=== PATIENT | female | born 1995 | race Caucasian/White ===

== ENCOUNTER 2017-05-10 15:40 | Emergency (ER) | payer OTHER ==
[~2017-05-10] VITALS: Ht 165.1 cm; Wt 90.9 kg
[2017-05-10] MEDS ORDERED: ALBU18HF IH (16:37)
[2017-05-10] MEDS ORDERED: HYDR-971 PO (16:37)
--- NOTE | 2017-05-10 16:37 | PHYS DOC ---
Past History Past Medical History: Anxiety, Asthma, Migraines, Other Past Surgical History: Other Alcohol Use: None Drug Use: None Adult General Chief Complaint Chief Complaint: COUGH HPI HPI Patient is a 21-year-old female presenting to the emergency department for evaluation of multiple symptoms including cough and nasal congestion runny nose sore throat generalized malaise fatigue having a migraine headache. Patient is bringing her 11-day-old in with her to be seen as well. Patient says that the symptoms have been going on for approximately 4-5 days. Cough is nonproductive and she has had no fevers chills nausea vomiting or diarrhea. Patient has a history of migraine headaches and took Imitrex when she had a primary care provider however she does not have any currently. She is in no obvious distress with normal vital signs. Review of Systems Review of Systems Constitutional: Denies fever or chills [] HENT: + nasal congestion, sore throat [] Respiratory: Denies cough or shortness of breath [] Cardiovascular: No additional information not addressed in HPI [] GI: Denies abdominal pain, nausea, vomiting, bloody stools or diarrhea [] : Denies dysuria or hematuria [] Musculoskeletal: Denies back pain or joint pain [] Integument: Denies rash or skin lesions [] Neurologic: + headache. No focal weakness or sensory changes [] Current Medications Current Medications Current Medications Medications (Trade) Dose Ordered Sig/Jessica Start Time Stop Time Status Last Admin Dose Admin Sumatriptan Succinate (Imitrex) 50 mg 1X ONCE 05/10/17 16:45 05/10/17 16:46 Allergies Allergies Allergies Coded Allergies Type Severity Reaction Last Updated Verified Penicillins Allergy Unknown 05/10/17 Yes Physical Exam Physical Exam Constitutional: Well developed, well nourished, no acute distress, non-toxic appearance. [] HENT: Normocephalic, atraumatic, bilateral external ears normal, oropharynx moist, no oral exudates, boggy nasal turbinates BL. [] Eyes: PERRLA, EOMI, conjunctiva normal, no discharge. [] Neck: Normal range of motion, no tenderness, supple, no stridor. [] Cardiovascular:Heart rate regular rhythm, no murmur [] Lungs & Thorax: Bilateral breath sounds clear to auscultation [] Neurologic: Alert and oriented X 3, normal motor function, normal sensory function, no focal deficits noted. [] Current Patient Data Vital Signs Vital Signs Date Time Temp Pulse Resp B/P (MAP) Pulse Ox O2 Delivery O2 Flow Rate FiO2 05/10/17 16:03 97.9 77 20 97 Room Air EKG EKG [] Radiology/Procedures Radiology/Procedures [] Course & Med Decision Making Course & Med Decision Making Patient with symptoms consistent with a URI and she appears very well with normal vital signs. I do not have any concerns for pulmonary embolism or other acute conditions at this time. Patient was given Imitrex here which helped her headache and she'll be discharged on [place] and told not to take more than 50 mg a day as she is breast-feeding. She was told she can take ibuprofen and Nasonex [id number] and she should follow with a primary care provider later this week and come back to the ED sooner with worsening pain fevers shortness of breath or other general concerns. Patient aware and agreeable with the above plan and verbalized understanding. Dragon Disclaimer Dragon Disclaimer This chart was dictated in whole or in part using Voice Recognition software in a busy, high-work load, and often noisy Emergency Department environment. It may contain unintended and wholly unrecognized errors or omissions. Departure Departure: Impression: Primary Impression: URI (upper respiratory infection) Disposition: 01 HOME, SELF-CARE Condition: STABLE Referrals: PCPTELLY (PCP) Patient Instructions: Upper Respiratory Infection, Adult Additional Instructions: YOU CAN TAKE 400MG OF IBUPROFEN FOR PAIN AND THE NORCO FOR BREAKTHROUGH PAIN. USE OTC NASONEX TO DECONGEST YOU. FOLLOW WITH PCP LATER THIS WEEK AND COME BACK TO THE ED WITH ANY NEW OR WORSENING SYMPTOMS. THANK YOU! Scripts Albuterol Sulfate (VENTOLIN HFA INHALER) 18 Gm Hfa.aer.ad 1 PUFF IH PRN Q4HRS Y for FOR ASTHMA, #1 INHALER 0 Refills Prov: ROSAURA POMPA DO 05/10/17 Hydrocodone Bit/Acetaminophen (NORCO 5-325 TABLET) 1 Each Tablet 1 TAB PO PRN Q6HRS Y for PAIN, #20 TAB 0 Refills Prov: ROSAURA POMPA DO 05/10/17 Problem Qualifiers Primary Impression: URI (upper respiratory infection) URI type: unspecified viral URI Qualified Codes: J06.9 - Acute upper respiratory infection, unspecified; B97.89 - Other viral agents as the cause of diseases classified elsewhere ROSAURA POMPA DO May 10, 2017 16:37
[2017-05-10] MEDS ORDERED: SUMAtriptan SUCCINATE 50 MG TABLET PO ONE (16:45)
[2017-05-10 16:58] VITALS: BP 118/70
== END 2017-05-10 16:55 | disposition home or self-care (01) ==
LOC: ER 15:40
DX: J06.9 Acute upper respiratory infection, unspecified (principal); J45.909 Unspecified asthma, uncomplicated; F41.9 Anxiety disorder, unspecified; G43.909 Migraine, unspecified, not intractable, without status migrainosus; Z88.0 Allergy status to penicillin
CPT/HCPCS: 87070; 87880; 99283

== ENCOUNTER 2017-05-25 13:13 | Emergency (ER) | payer OTHER ==
[~2017-05-25] VITALS: Ht 165.1 cm; Wt 90.9 kg
[~2017-05-25 13:13] MED LIST: ALBU18HF IH; HYDR-971 PO
[2017-05-25] MEDS ORDERED: IV NORMAL SALINE 1,000ML 1,000 ML IV ONE (15:30)
[2017-05-25] MEDS ORDERED: ONDANSETRON PF 4 MG/2 ML VIAL. IV ONE (15:45)
[2017-05-25] MEDS ORDERED: LIDOCAINE 4% MC ONE (15:45)
[2017-05-25] MEDS ORDERED: NORMAL SALINE MC ONE (15:45)
[2017-05-25 15:58] LABS: BACTERIA,URINE 0 /HPF (0-FEW); BILIRUBIN,URINE NEG (NEG); CLARITY,URINE HAZY; COLOR,URINE STRAW; GLUCOSE,URINE NEG (NEG); NITRITE,URINE NEG (NEG); RBC,URINE 20-40 /HPF (0-2); SQUAMOUS EPITHELIAL CELL,UR MANY /LPF; UROBILINOGEN,URINE 0.2 mg/dL (0.2 mg/dL)
[2017-05-25 16:13] LABS: BASO % 0 % (0-3); EOS # 0.3 x10^3/uL (0.0-0.7); EOS % 3 % (0-3); HEMATOCRIT 40.2 % (36.0-47.0); HEMOGLOBIN 13.4 g/dL (12.0-15.5); LYMPH # 2.5 x10^3/uL (1.0-4.8); LYMPH % 29 % (24-48); MEAN CORPUSCULAR HEMOGLOBIN 29 pg (25-35); MEAN CORPUSCULAR HGB CONC 33 g/dL (31-37); MEAN CORPUSCULAR VOLUME 88 fL (79-100); MONO # 0.6 x10^3/uL (0.0-1.1); MONO % 7 % (0-9); NEUT # 5.3 x10^3uL (1.8-7.7); NEUT % 61 % (31-73); PLATELET COUNT 289 x10^3/uL (140-400); RED BLOOD COUNT 4.59 x10^6/uL (3.50-5.40); RED CELL DISTRIBUTION WIDTH 14.1 % (11.5-14.5); WHITE BLOOD COUNT 8.8 x10^3/uL (4.0-11.0)
[2017-05-25] MEDS ORDERED: LIDOCAINE 4% TOPICAL 50 ML SOLUTION. MM ONE (16:15)
[2017-05-25 16:41] LABS: CALCIUM 8.5 mg/dL (8.5-10.1); CREATININE 0.6 mg/dL (0.6-1.0)
[2017-05-25] MEDS ORDERED: KETOROLAC 15 MG/ML VIAL. IV ONE (17:15)
[2017-05-25] MEDS ORDERED: DEXAMETHASONE SOD PHOS 10 MG/ML VIAL IV ONE (17:15)
[2017-05-25] MEDS ORDERED: diphenhydrAMINE 50 MG/ML VIAL IVP ONE (17:20)
[2017-05-25] MEDS ORDERED: PROCHLORPERAZINE 10 MG/2 ML VIAL. IV ONE (17:20)
[2017-05-25 18:22] VITALS: BP 177/76
[2017-05-25] MEDS ORDERED: BUTA1CAP31 PO (19:08)
--- NOTE | 2017-05-25 21:38 | ED.ADGEN ---
Past History Past Medical History: Anxiety, Asthma, Migraines, Other Past Surgical History: Other Alcohol Use: None Drug Use: None Adult General HPI HPI Patient is a 22-year-old woman, history of anxiety, with a recent diagnosis of complex migraine, who is 3 weeks status post normal spontaneous vaginal delivery , who presents to the emergency department with a complaint of recurrent complex migraine. Patient states that yesterday she began experiencing pain on the left side of her head, in the left frontal region, along with numbness in her left upper extremity and some left lower extremity. Patient states that she had these symptoms previously, which was 37 weeks , that time she was seen at [facility], and had a stroke workup performed which was negative, and was given a diagnosis of complex migraine. Patient states that she was told to follow-up with neurology was not given a particular neurologist with whom to follow up in order to, she states that currently she does not have a primary care provider, and per her insurance requires a primary care provider orders be referred to neurology. She denies any vision changes, states that she does have nausea, some photophobia and has had several episodes of emesis, denies abdominal pain, urinary complaints, back pain or neck pain, denies any pain, states that she does feel as though the numbness makes her arm weak, although she is able to function with the upper extremity and lower extremity, ambulating without difficulty. She denies any neck pain, any fevers or chills, any injuries, denies any change in symptoms, is consistent with her previous headache and other symptoms. No drugs, alcohol or cigarettes. Patient is breast- feeding. Patient states that she was given Compazine and Benadryl to take for her headaches, states that she has not taken medications since yesterday with headache first began, as "they just don't work". Denies any drugs, alcohol or cigarettes. Review of Systems Review of Systems Constitutional: Denies fever or chills [] Eyes: Denies change in visual acuity, redness, or eye pain [] HENT: Denies nasal congestion or sore throat [] Respiratory: Denies cough or shortness of breath [] Cardiovascular: No additional information not addressed in HPI [] GI: Denies abdominal pain, nausea, vomiting, bloody stools or diarrhea [] : Denies dysuria or hematuria [] Musculoskeletal: Denies back pain or joint pain [] Integument: Denies rash or skin lesions [] Neurologic: Patient with left-sided headache, complaining of numbness in the left upper and lower extremities. Endocrine: Denies polyuria or polydipsia [] Current Medications Current Medications Current Medications Medications (Trade) Dose Ordered Sig/Jessica Start Time Stop Time Status Last Admin Dose Admin Dexamethasone Sodium Phosphate (Decadron) 10 mg 1X ONCE 05/25/17 17:15 05/25/17 17:16 DC 05/25/17 17:15 10 MG Diphenhydramine HCl (Benadryl) 25 mg 1X ONCE 05/25/17 17:20 05/25/17 17:21 DC 05/25/17 17:35 25 MG Ketorolac Tromethamine (Toradol) 10 mg 1X ONCE 05/25/17 17:15 05/25/17 17:16 DC 05/25/17 17:15 10 MG Lidocaine HCl 2.5 ml 1X ONCE 05/25/17 16:15 05/25/17 16:16 DC 05/25/17 16:15 2.5 ML Lidocaine HCl 5 ml/Sodium Chloride 55 ml @ 0 mls/hr 1X ONCE 05/25/17 15:45 05/25/17 15:46 DC 05/25/17 15:45 4 MLS/HR Ondansetron HCl (Zofran) 4 mg 1X ONCE 05/25/17 15:45 05/25/17 16:17 DC Prochlorperazine Edisylate (Compazine) 10 mg 1X ONCE 05/25/17 17:20 05/25/17 17:21 DC 05/25/17 17:35 10 MG Sodium Chloride 1,000 ml @ 1,000 mls/hr 1X ONCE 05/25/17 15:30 05/25/17 16:29 DC 05/25/17 15:46 1,000 MLS/HR Allergies Allergies Allergies Coded Allergies Type Severity Reaction Last Updated Verified Penicillins Allergy Unknown 05/10/17 Yes ondansetron Allergy Unknown 05/25/17 Yes Physical Exam Physical Exam Constitutional: Well developed, well nourished, no acute distress, non-toxic appearance. [] HENT: Normocephalic, atraumatic, bilateral external ears normal, oropharynx moist, no oral exudates, nose normal. [] Eyes: PERRLA, EOMI, conjunctiva normal, no discharge. [] Neck: Normal range of motion, no tenderness, supple, no stridor. []Negative jolt accentuation test. Cardiovascular:Heart rate regular rhythm, no murmur, S1, S2, rubs or gallops. [] Lungs & Thorax: Bilateral breath sounds clear to auscultation , no wheezing, rhonchi, rales. No chest or crepitus or tenderness.[] Abdomen: Bowel sounds normal, soft, no tenderness, no masses, no pulsatile masses. [] Skin: Warm, dry, no erythema, no rash. [] Back: No tenderness, no CVA tenderness. [] Extremities: No tenderness, no cyanosis, no clubbing, ROM intact, no edema. [] Neurologic: Alert and oriented X 3, normal motor function, 5-5 strength in all extremities, fine motor function intact, patient complains of diminished sensation circumferentially in the left upper extremity at this time. Psychologic: Affect normal, judgement normal, mood normal. [] Current Patient Data Vital Signs Vital Signs Date Time Temp Pulse Resp B/P (MAP) Pulse Ox O2 Delivery O2 Flow Rate FiO2 05/25/17 18:22 55 16 177/76 (109) 97 Room Air 05/25/17 13:16 98.3 Lab Results Laboratory Tests Test 05/25/17 15:05 05/25/17 15:35 05/25/17 16:21 Urine Collection Type Unknown Urine Color Straw Urine Clarity Hazy Urine pH 6.5 Urine Specific [place] 1.015 Urine Protein Neg (NEG-TRACE) Urine Glucose (UA) Neg mg/dL (NEG) Urine Ketones (Stick) Neg mg/dL (NEG) Urine Blood Large (NEG) Urine Nitrite Neg (NEG) Urine Bilirubin Neg (NEG) Urine Urobilinogen Dipstick 0.2 mg/dL (0.2 mg/dL) Urine Leukocyte Esterase Mod (NEG) Urine RBC 20-40 /HPF (0-2) Urine WBC 1-4 /HPF (0-4) Urine Squamous Epithelial Cells Many /LPF Urine Transitional Epithelial Cells Few /LPF Urine Bacteria 0 /HPF (0-FEW) White Blood Count 8.8 x10^3/uL (4.0-11.0) Red Blood Count 4.59 x10^6/uL (3.50-5.40) Hemoglobin 13.4 g/dL (12.0-15.5) Hematocrit 40.2 % (36.0-47.0) Mean Corpuscular Volume 88 fL (79-100) Mean Corpuscular Hemoglobin 29 pg (25-35) Mean Corpuscular Hemoglobin Concent 33 g/dL (31-37) Red Cell Distribution Width 14.1 % (11.5-14.5) Platelet Count 289 x10^3/uL (140-400) Neutrophils (%) (Auto) 61 % (31-73) Lymphocytes (%) (Auto) 29 % (24-48) Monocytes (%) (Auto) 7 % (0-9) Eosinophils (%) (Auto) 3 % (0-3) Basophils (%) (Auto) 0 % (0-3) Neutrophils # (Auto) 5.3 x10^3uL (1.8-7.7) Lymphocytes # (Auto) 2.5 x10^3/uL (1.0-4.8) Monocytes # (Auto) 0.6 x10^3/uL (0.0-1.1) Eosinophils # (Auto) 0.3 x10^3/uL (0.0-0.7) Basophils # (Auto) 0.0 x10^3/uL (0.0-0.2) Sodium Level 139 mmol/L (136-145) Potassium Level 4.0 mmol/L (3.5-5.1) Chloride Level 106 mmol/L (98-107) Carbon Dioxide Level 24 mmol/L (21-32) Anion Gap 9 (6-14) Blood Urea Nitrogen 9 mg/dL (7-20) Creatinine 0.6 mg/dL (0.6-1.0) Estimated GFR (Cockcroft-Gault) 125.0 Glucose Level 83 mg/dL (70-99) Calcium Level 8.5 mg/dL (8.5-10.1) EKG EKG [] Radiology/Procedures Radiology/Procedures Not indicated.[] Course & Med Decision Making Course & Med Decision Making Pertinent Labs and Imaging studies reviewed. (See chart for details) Patient well-appearing, blood pressures are 120s over 70s, heart rates are in the 60s, oxygen saturation is 96-90% on room air, this entry rate is 18-20 and unlabored. Patient is using her upper extremity on the right and left equally without difficulty, holding her child in the room. She complains of subjective numbness and tingling superinfection in the left upper extremity, and a headache as stated. Records were obtained from patient's [facility] evaluation, patient was noted to have had CT without contrast, CTA in CTV imaging did not reveal any concerning findings, with diagnosis of complex migraine. Patient's laboratory studies obtained in the ED were unremarkable. I spoke with Dr. Irby of neurology, patient's examination, and records reviewed, he recommends treatment for migraine, and follow-up in the outpatient setting for MRI. I did discuss this with the patient, she is agreeable this plan, especially as she received multiple CT scans of the brain only a few weeks ago. Patient received treatment with lidocaine neb, Compazine, Benadryl, Decadron, Toradol, and IV fluids. On reevaluation, she states her headache is nearly fully resolved, and she has resolution of her other symptoms. She is resting comfortably, remained stable on the monitor, sinus rhythm in the 60s, ambulating without difficulty in the ED. I did discuss with patient at length the importance of follow-up, use of Fiorinal if headache symptoms return, although she cannot breast-feed will she is taking this medication as it does contain aspirin, and there is a low risk of complication, to use ibuprofen as directed on the packaging as needed, to stay well-hydrated and work on getting more rest. Patient was also given a list of available primary care providers with him to establish primary care, so she will be able to receive a referral for neurology for additional evaluation. Additionally, we did discuss concerning symptoms that prompt return to the ED for additional evaluation. Patient voiced understanding and agreement with instructions and precautions, discharged home in stable condition with prescription and plan as above. Final Impression Final Impression [] Problems: Dragon Disclaimer Dragon Disclaimer This electronic medical record was generated, in whole or in part, using a voice recognition dictation system. Departure: Impression: Primary Impression: Migraine Disposition: HOME, SELF-CARE Condition: IMPROVED Scripts Butalbital/Aspirin/Caffeine (FIORINAL 50-325-40 MG CAPSULE) 1 Each Capsule 1 EACH PO PRN Q4-6HRS Y for HEADACHE, #12 CAP Prov: MAJO CUEVAS DO 05/25/17 MAJO CUEVAS DO May 25, 2017 21:38
== END 2017-05-25 19:17 | disposition home or self-care (01) ==
LOC: ER 13:13
DX: O90.89 Other complications of the puerperium, not elsewhere classified (principal); G43.909 Migraine, unspecified, not intractable, without status migrainosus; J45.909 Unspecified asthma, uncomplicated; F41.9 Anxiety disorder, unspecified; Z88.0 Allergy status to penicillin; Z88.8 Allergy status to other drugs, medicaments and biological substances
CPT/HCPCS: 36415; 80048; 81001; 85025; 94640; 96361; 96374; 96375; 99284; J0780; J1100; J1200; J1885; J2001; 96372; 96376; J7030

== ENCOUNTER 2017-07-05 03:07 | Emergency (ER) | payer OTHER ==
[~2017-07-05] VITALS: Ht 165.1 cm; Wt 90.9 kg
[~2017-07-05 03:07] MED LIST changes: +BUTA1CAP31 PO
[2017-07-05] MEDS ORDERED: ACETAMINOPHEN 325 MG TABLET PO ONE (03:15)
[2017-07-05 03:18] VITALS: BP 115/62
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
--- NOTE | 2017-07-05 07:56 | RAD ---
HAND RIGHT 3V Clinical Indication: punched wall, pain/swelling Comparison: None. Technique: Frontal, oblique and lateral views of the right hand are obtained. Findings: No acute fracture or dislocation is seen. Joint spaces are maintained. Soft tissue swelling is seen about the dorsum of the hand on the lateral view. IMPRESSION: No acute osseous injury seen.
== END 2017-07-05 03:44 | disposition home or self-care (01) ==
LOC: ER 03:07
DX: G43.909 Migraine, unspecified, not intractable, without status migrainosus (principal); S60.221A Contusion of right hand, initial encounter; J45.909 Unspecified asthma, uncomplicated; F41.9 Anxiety disorder, unspecified; F17.210 Nicotine dependence, cigarettes, uncomplicated; Z88.0 Allergy status to penicillin; Z88.8 Allergy status to other drugs, medicaments and biological substances; W22.01XA Walked into wall, initial encounter; Y93.89 Activity, other specified; Y99.8 Other external cause status; Y92.89 Other specified places as the place of occurrence of the external cause
CPT/HCPCS: 73130; 99284